=== PATIENT | male | born 1950 | race Caucasian/White ===

== ENCOUNTER 2022-05-23 07:05 | Outpatient (CLI) | payer MEDICARE, OTHER, SELFPAY ==
--- NOTE | 2022-05-23 08:31 | W.ANESCHARGE ---
Anesthesia Charges Start Date/Time Anesthesia Start Date: 05/23/22 Anesthesia Start Time: 08:01 Stop Date/Time Anesthesia Stop Date: 05/23/22 Anesthesia Stop Time: 08:28 Summary Emergency: No Extremes of Age: Over 70-CPT 19316
--- NOTE | 2022-05-23 08:52 | W.ANESCHARGE ---
Anesthesia Charges Start Date/Time Anesthesia Start Date: 05/23/22 Anesthesia Start Time: 08:01 Stop Date/Time Anesthesia Stop Date: 05/23/22 Anesthesia Stop Time: 08:28 Summary Emergency: No Extremes of Age: Over 70-CPT 92273
== END 2022-05-23 07:06 | disposition home or self-care (01) ==
LOC: OP CLINIC 07:07
PROVIDERS: PCP Family Medicine; Visit Provider Internal Medicine Gastroenterology
DX: Z12.11 Encounter for screening for malignant neoplasm of colon (principal); K63.5 Polyp of colon; Z86.010 Personal history of colon polyps
CPT/HCPCS: 00811; 00812; 45380; 88305; 99100; J2704

== ENCOUNTER 2022-06-23 06:11 | Day surgery (SDC) | payer MEDICARE, OTHER, SELFPAY ==
[2022-06-23] VITALS (10 sets, daily range): BP systolic 94–151; BP diastolic 53–82; PULSE 47–66; RESP 12–18; TEMP 36.1–36.7; O2SAT 94–100; BMI 25.7
[2022-06-23] MEDS: fentaNYL 100 MCG/2 ML inj IVP (06:29)
[2022-06-23] MEDS: MIDAZOLAM HCL 1 MG/ML inj IVP (06:29)
[2022-06-23] MEDS: ACETAMINOPHEN 500 MG TABLET 1000 MG PO (06:29)
[2022-06-23] MEDS: CELECOXIB 200 MG CAPSULE PO (06:29)
[2022-06-23] MEDS: OXYCODONE (CR) 10 MG TAB.ER.12H PO (06:29)
[2022-06-23] MEDS: LACTATED RINGERS 1000 ML 1,000 ML 100 ML IV (06:30)
[2022-06-23] MEDS: SODIUM CHLORIDE 0.9 % (FLUSH) 10 ML SYRINGE IVF (07:00)
--- NOTE | 2022-06-23 07:04 | CRLHL7_ITS ---
For Patients: As a result of the Cures Act, medical imaging exams and procedure reports are released immediately into your electronic medical record. You may view this report before your referring provider. If you have questions, please contact your health care provider. Indication: RIGHT THUMB CMC ARTHROPLASTY Technique: Two fluoroscopic images of the right wrist. Fluoroscopic time 6.7 seconds. IMPRESSION: Fluoroscopic guidance for resection of the trapezium. Dictated by Paco Casey MD @ 06/23/2022 9:32:50 AM (Electronically Signed)
--- NOTE | 2022-06-23 07:17 | SUR.PREOP ---
TIME?OUT:?0715 PT/RN/MDA?VERIFICATION?OF?SURGICAL?SITE,?PROCEDURE,?AND?CONSENT OBTAINED?PRIOR?TO?INVASIVE?PROCEDURE. RIGHT THUMB
--- NOTE | 2022-06-23 07:27 | P.NB_ITS ---
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 Images saved: Yes Medications given in 5ml increments after negative aspiration: Ropivicaine %: 0.5 mL: 30 Needle gauge: 22 Patient tolerated procedure well: Yes Additional comments: Needle noted adjacent to nerve Block Charges Block Charge (with Pro Fee): Brachial Plexus Use of Ultrasound Machine for Block: Yes- US Guidance/pain block
--- NOTE | 2022-06-23 09:33 | PM.ORPRC ---
Procedure Note Date of procedure: 06/23/22 Procedure: SURGEON: Armin Mujica MD APPLICATIONS SUPPORT ANALYST: Meghan Hernandez PA-C PREOPERATIVE DIAGNOSIS: Right thumb CMC joint osteoarthritis, STT joint osteoarthritis POSTOPERATIVE DIAGNOSIS: Right thumb CMC joint osteoarthritis, STT joint osteoarthritis NAME OF OPERATION: Right thumb CMC arthroplasty (LRTI), proximal trapezoid resection ANESTHESIA: Axillary block plus monitored anesthesia care ESTIMATED BLOOD LOSS: 0 mL COMPLICATIONS: None SPECIMENS: None DRAINS: None PREOPERATIVE ANTIBIOTICS: Ancef 2 grams INDICATIONS: The patient is a 72-year-old male with a history of right thumb CMC and STT joint osteoarthritis. Despite appropriate nonoperative management, including activity modification, antiinflammatories, [id number] pain medication, bracing, occupational therapy, and injections they continue to have pain and disability. Operative intervention was offered. The risks, benefits and expected outcomes were discussed in detail. These included but were not limited to: Infection, bleeding, injury to blood vessel or nerve, venous thromboembolism. All questions were answered to their satisfaction. Use of an paraprofessional education assistant was necessary for patient positioning, soft tissue retraction, wound closure and dressing and splint application. PROCEDURE: An axillary block was placed by anesthesia. The patient was placed supine on the operating room table. IV sedation was administered. The right upper extremity was prepped and draped in the usual sterile fashion. The limb was exsanguinated with the Zeferino bandage. The pneumatic tourniquet was inflated to 250 mmHg. A longitudinal incision was made just dorsal to the 1st dorsal compartment at the base of the thumb. Subcutaneous dissection was taken with tenotomy scissors. Several small crossing veins were cauterized and divided. The base of the thumb metacarpal was exposed. The CMC joint capsule was incised longitudinally. Subperiosteal dissection of the trapezium was carried both dorsally and volarly. Likewise, the base of the thumb metacarpal was subperiosteally exposed. The radial sensory nerve was encountered and was carefully protected throughout the case. The trapezium was dissected free with the 15 blade and the Hawkins elevator. It was removed intact. The base of the trapezoid was identified. This was confirmed with the image intensifier. We used a [place] osteotome and resected the proximal 2 mm of the trapezoid. The resection was confirmed with the image intensifier. Attention was then turned to the FCR graft harvest. A transverse incision was made at the musculotendinous junction of the FCR in the volar forearm. Subcutaneous dissection was taken with tenotomy scissors to the tendon. The tendon was freed up from the muscle fibers and was divided transversely. We then pulled the tendon graft into the distal incision at the base of the thumb. We placed a 2-0 FiberWire suture in the deep capsule. A 2.8 mm socket was drilled on the radial side of the base of the index finger metacarpal. A loop of labral tape was placed in the socket and secured with a 3 mm x 8 mm BioComposite anchor. A guide pin was drilled through the dorsum of the base of the thumb metacarpal exiting at the volar peak of the base of thumb metacarpal. A 5 mm tunnel was drilled. The tendon passer was placed through the tunnel. We pulled the tendon graft and both limbs of the labral tape into the tunnel. We maximally tensioned the graft and then placed a 4.75 x 15 mm Arthrex BioComposite tenodesis screw just distal to the graft. The graft was then pulled proximally and was secured to the dorsal bone of the base of the metacarpal with 2-0 FiberWire suture x2. We then used our previously placed 2-0 FiberWire suture in the deep capsule and folded the graft back and forth over these sutures. The graft was placed in the depth of the wound and this FiberWire suture was tied over the top to secure it in position. The wound was irrigated with normal saline. The capsule was closed with a 3-0 Vicryl in an interrupted [id number] fashion. Wounds were closed with the 3-0 Vicryl and a 4-0 Monocryl. Glue was used to seal the skin. A dry dressing and short-arm thumb spica splint were applied, the tourniquet was released. Sponge and needle counts were correct x 2. The patient tolerated the procedure well. There were no apparent complications. They were carefully transferred to the hospital bed and taken to the postanesthesia care unit in satisfactory condition. PLAN: The patient will be discharged to home. They will work on ice and elevation of the hand. They will follow up in the office next week for wound check and three views of the thumb, out of the splint prior to being seen, in preparation for an Orthoplast splint and active range of motion.
--- NOTE | 2022-06-23 09:44 | W.ANESCHARGE ---
Anesthesia Charges Summary Emergency: No Extremes of Age: Over 70-CPT 79372
--- NOTE | 2022-06-23 10:07 | W.ANESCHARGE ---
Anesthesia Charges Start Date/Time Anesthesia Start Date: 05/23/22 Anesthesia Start Time: 07:41 Stop Date/Time Anesthesia Stop Date: 05/23/22 Anesthesia Stop Time: 09:50 Summary Emergency: No Extremes of Age: Over 70-CPT 37797
--- NOTE | 2022-06-23 11:41 | W.ANESCHARGE ---
Anesthesia Charges Start Date/Time Anesthesia Start Date: 06/23/22 Anesthesia Start Time: 07:41 Stop Date/Time Anesthesia Stop Date: 06/23/22 Anesthesia Stop Time: 09:50 Summary Emergency: No Extremes of Age: Over 70-CPT [id number]
== END 2022-06-23 11:19 | disposition home or self-care (01) ==
PROVIDERS: PCP Family Medicine; Visit Provider Orthopaedic Surgery
PROC: (CPT 25447; principal; 2022-06-23 07:30)
DX: M18.11 Unilateral primary osteoarthritis of first carpometacarpal joint, right hand (principal); M19.032 Primary osteoarthritis, left wrist
CPT/HCPCS: 25447; 20924; 01810; 01830; 64415; 73140; 76942; 82962; 99100; A4580; A9270; C1713; J2250; J2405; J2704; J2795; J3010; J7120

== ENCOUNTER 2022-09-11 20:45 | Outpatient (CLI) | payer MEDICARE, OTHER, SELFPAY | END 2022-09-11 20:46 | disposition home or self-care (01) | LOC: SLEEP 20:46 | PROVIDERS: PCP Family Medicine; Referring Provider Internal Medicine; Visit Provider Internal Medicine | DX: G47.33 Obstructive sleep apnea (adult) (pediatric) (principal) | CPT/HCPCS: 95810 ==

== ENCOUNTER 2023-06-22 10:15 | Outpatient (RCR) | payer MEDICARE, OTHER, SELFPAY ==
--- NOTE | 2023-02-08 16:01 | OT.OPOE ---
OT Outpatient Ortho Eval OT Outpatient Ortho Eval* Start: 02/08/23 15:11 Freq: Status: Active Protocol: Document 02/08/23 15:11 AMB (Rec: 02/08/23 15:27 AMB [id number]) E-signed By Arlin Mohr, OTR/L, CLT, HOME DECORATOR OT OP Ortho Eval Details Complexity Complexity Low Insurance Information Insurance Information Medicare B Outpatient History/Precautions Current Condition/Medical Diagnosis Referring Provider Dr Mujica Treatment Diagnosis S/P LUE CMC arthroplasty Date of Onset DOS: 01/31/23 Medical Conditions DM,HTN,Arthritis Other Conditions PMH: Copied from ortho note: Active Problems (Updated 02/08 @ 09:21 by Kecia Hernandez PA-C) Primary osteoarthritis, left wrist (Acute) STT M19.032 - Primary osteoarthritis, left wrist ( ICD-10) Osteoarthritis of carpometacarpal (CMC) joint of left thumb (Acute) Date of surgery 01/31/2023 M18.12 - Unilateral primary osteoarthritis of first carpometacarpal joint, left hand (ICD-10) History of arthroplasty of finger of right hand (Acute ) right thumb CMC arthroplasty with proximal trapezoid resection (06/23/2022, Dr. Mujica) Z96.691 - Finger-joint replacement of right hand (ICD -10) Pulmonary embolism (Acute) I26.99 - Other pulmonary embolism without acute cor pulmonale (ICD-10) Hyperlipidemia (Acute) E78.5 - Hyperlipidemia, unspecified (ICD-10) Hypertension (Acute) I10 - Essential (primary) hypertension (ICD-10) Gastroenteritis (Acute) K52.9 - Noninfective gastroenteritis and colitis, unspecified (ICD-10) Contusion of rib on right side (Acute) S20.211A - Contusion of right front wall of thorax, initial encounter (ICD-10) Medical History (Updated 02/08 @ 09:21 by Kecia Hernandez PA-C) Arthritis of carpometacarpal ( CMC) joint of right thumb M18.11 - Unilateral primary osteoarthritis of first carpometacarpal joint, right hand (ICD-10) Type 2 diabetes mellitus without complication, without long-term current use of insulin E11.9 - Type 2 diabetes mellitus without complications (ICD-10) Vitamin D deficiency E55.9 - Vitamin D deficiency, unspecified (ICD-10) Gout M10.9 - Gout, unspecified (ICD -10) GERD (gastroesophageal reflux disease) K21.9 - Gastro-esophageal reflux disease without esophagitis (ICD-10) Diabetes E11.9 - Type 2 diabetes mellitus without complications (ICD-10) Pulmonary embolism I26.99 - Other pulmonary embolism without acute cor pulmonale (ICD-10) Hypertension I10 - Essential (primary) hypertension (ICD-10) Hyperlipidemia E78.5 - Hyperlipidemia, unspecified (ICD-10) Surgical History (Updated @ 07:44 by Estrellita Santiago ~ [facility], [facility]) History of arthroplasty of finger of left hand (01/31/23) Z96.692 - Finger-joint replacement of left hand (ICD- 10) History of arthroplasty of finger of right hand (06/23/22 ) Z96.691 - Finger-joint replacement of right hand (ICD -10) History of appendectomy Z90.49 - Acquired absence of other specified parts of digestive tract (ICD-10) Allergies amoxicillin Allergy (Verified 02/08/23 09:00) atorvastatin [From Lipitor] Allergy (Verified 02/08/23 09: 00) muscle aches oxycodone Allergy (Verified 09:00) itching ranitidine [From Zantac] Allergy (Verified 02/08/23 09: 00) muscle aches HMG-CoA reductase inhibitor Adverse Reaction (Mild, Uncoded 02/08/23 09:00) Muscle cramps - Last Reconciled 02/08/23 by Estrellita Santiago ~ [facility], [facility] aspirin 81 mg PO QDAY cholecalciferol (vitamin D3) 2 ,000 units PO .Bedtime coenzyme Q10 100 mg PO DAILY metoprolol succinate ER ( Toprol XL) 50 mg PO DAILY omega-3 fatty acids 1,000 mg PO DAILY omeprazole 20 mg PO QDAY pravastatin 40 mg PO .Bedtime trazodone 100 mg PO QDAY triamterene-hydrochlorothiazid 37.5-25 mg 1 cap PO DAILY Medical/Functional History Medical History Reviewed Yes Prior Level of Function/Mobility Full use of LUE with arthritic pain Social History Employment Status Retired Hobbies Caring for his dogs, yard work , walking Ortho Subjective Subjective Subjective Pt states he is feeling pretty good, no longer taking the pain meds and feels his swelling and pain are less than what he had with his RUE CMC arthroplasty. Pt had his post-op dressing removed today , referred to OT for custom splinting. Pt states he is having mild pain in his hand ~ 3/10. Goniometric Comments Goniometric Comments Goniometric Comments 02/08/23 AROM of the LUE wrist flexion is 15deg, ext is 10 deg, UD is 10 deg, RD is 10 deg. Pronation and supination are both 40. Pt is able to demonstrate opposition to the tip of the 3rd digit. Palmar abd is 30, radial abd is 25, IP AROM is 0-25. Strength testing is not appropriate at this time. OT Objective Data Skin/Wounds/Edema Comments 02/08/23 Expected swelling is appreciated at the LUE thumb, palm, dorsal hand and fingers. Mild bruising. Wound is clean and dry, no s/s of infection. OT Problems Problems Problems Decreased Strength,Decreased Range of Motion,Decreased Dexterity,Pain,Lifting, Gripping,Pinching Other Problems Opening Containers,Dressing, Computer,Sleeping Patient Potential Good Assessment Assessment Assessment Pt presents to OT 1 week and 1 day s/p LUE CMC arthroplasty, ready for custom splinting for protected healing and early AROM program. Pt is doing well but is limited in ADLs and IADLs that require gripping, pinching and lifting with the LUE secondary to protective restrictions following his surgery. Pt will benefit from skilled OT intervention to address limitations and to provide custom splinting for protected healing in order to return to PLOF with full, pain-free use of his LUE. Occupational Therapy Treatment Plan - OP Potential Rehabilitation Potential Good Set Goals Goals Set with Patient Yes Goals Goals 1. Pt will be independent and compliant with HEP and use of custom splint in order to resume full, pain-free use of the involved UE. 3 weeks 2. Pt will demonstrate full, pain-free AROM of the involved UE in order to improve ability to grasp and hold. 6 weeks 3. Pt will demonstrate pain- free landscape architect and planner and pinch strength comparable to the uninvolved side in order to improve functional grasp, hold, reach, and lifting ability needed to complete self-care, leisure tasks, and work activities. 8 weeks. Treatment Plan Treatment Plan Evaluation,Edema Control,Joint Mobilization,Manual Therapy, Splinting,Ultrasound,Wound Care/Scar Management, Therapeutic Exercise, Therapeutic Activities,Self Care/Home Management,Education Expected Frequency 1-2x Week Home Program Home Program Home Program Initiated Home Program Specifics 02/08/23 AROM and non resisted mm pumps for LUE fingers, hand , thumb, wrist and forearm. Certification Certification I Certify That: Therapy Services Provided, Therapy Plan Established, Therapy Plan Reviewed Recertification Information Recertification Information Initial Certification Date 02/08/23 Recertification Due Date 05/09/23 Reasons to Continue Skilled Therapy Initiated OT today to address impairments in the LUE hand/ wrist/forearm following CMC arthroplasty and custom splinting. Rehabilitation Potential Good Continued Plan of Care and Interventions Please see above. Provider Signature Shows Agreement With POC & Medical Necessity Physician Comment/Change Comment or Changes Physician NPI Number #
--- NOTE | 2023-05-25 11:47 | OT.OPODN ---
OT Outpatient Ortho Daily Note OT Outpatient Ortho Daily Note* Start: 02/08/23 15:11 Freq: Status: Active Protocol: Document 05/25/23 09:18 AMB (Rec: 05/25/23 10:13 AMB [id number]) E-signed By Arlin Mohr, OTR/L, CLT, [employer] Type of Note Type of Note Type of Note Daily Note,Recert/Progress Note Visit Number [id number] Insurance Information Insurance Information Medicare B Outpatient History/Precautions Current Condition/Medical Diagnosis Referring Provider Dr Mujica Treatment Diagnosis S/P LUE CMC arthroplasty Date of Onset DOS: 01/31/23 Medical Conditions DM,HTN,Arthritis Other Conditions PMH: Copied from ortho note: Active Problems (Updated 02/08 @ 09:21 by Kecia Hernandez PA-C) Primary osteoarthritis, left wrist (Acute) STT M19.032 - Primary osteoarthritis, left wrist ( ICD-10) Osteoarthritis of carpometacarpal (CMC) joint of left thumb (Acute) Date of surgery 01/31/2023 M18.12 - Unilateral primary osteoarthritis of first carpometacarpal joint, left hand (ICD-10) History of arthroplasty of finger of right hand (Acute ) right thumb CMC arthroplasty with proximal trapezoid resection (06/23/2022, Dr. Mujica) Z96.691 - Finger-joint replacement of right hand (ICD -10) Pulmonary embolism (Acute) I26.99 - Other pulmonary embolism without acute cor pulmonale (ICD-10) Hyperlipidemia (Acute) E78.5 - Hyperlipidemia, unspecified (ICD-10) Hypertension (Acute) I10 - Essential (primary) hypertension (ICD-10) Gastroenteritis (Acute) K52.9 - Noninfective gastroenteritis and colitis, unspecified (ICD-10) Contusion of rib on right side (Acute) S20.211A - Contusion of right front wall of thorax, initial encounter (ICD-10) Medical History (Updated 02/08 @ 09:21 by Kecia Hernandez PA-C) Arthritis of carpometacarpal ( CMC) joint of right thumb M18.11 - Unilateral primary osteoarthritis of first carpometacarpal joint, right hand (ICD-10) Type 2 diabetes mellitus without complication, without long-term current use of insulin E11.9 - Type 2 diabetes mellitus without complications (ICD-10) Vitamin D deficiency E55.9 - Vitamin D deficiency, unspecified (ICD-10) Gout M10.9 - Gout, unspecified (ICD -10) GERD (gastroesophageal reflux disease) K21.9 - Gastro-esophageal reflux disease without esophagitis (ICD-10) Diabetes E11.9 - Type 2 diabetes mellitus without complications (ICD-10) Pulmonary embolism I26.99 - Other pulmonary embolism without acute cor pulmonale (ICD-10) Hypertension I10 - Essential (primary) hypertension (ICD-10) Hyperlipidemia E78.5 - Hyperlipidemia, unspecified (ICD-10) Surgical History (Updated @ 07:44 by Estrellita Santiago ~ [facility]) History of arthroplasty of finger of left hand (01/31/23) Z96.692 - Finger-joint replacement of left hand (ICD- 10) History of arthroplasty of finger of right hand (06/23/22 ) Z96.691 - Finger-joint replacement of right hand (ICD -10) History of appendectomy Z90.49 - Acquired absence of other specified parts of digestive tract (ICD-10) Allergies amoxicillin Allergy (Verified 02/08/23 09:00) atorvastatin [From Lipitor] Allergy (Verified 02/08/23 09: 00) muscle aches oxycodone Allergy (Verified 09:00) itching ranitidine [From Zantac] Allergy (Verified 02/08/23 09: 00) muscle aches HMG-CoA reductase inhibitor Adverse Reaction (Mild, Uncoded 02/08/23 09:00) Muscle cramps - Last Reconciled 02/08/23 by Estrellita Santiago ~ [facility] aspirin 81 mg PO QDAY cholecalciferol (vitamin D3) 2 ,000 units PO .Bedtime coenzyme Q10 100 mg PO DAILY metoprolol succinate ER ( Toprol XL) 50 mg PO DAILY omega-3 fatty acids 1,000 mg PO DAILY omeprazole 20 mg PO QDAY pravastatin 40 mg PO .Bedtime trazodone 100 mg PO QDAY triamterene-hydrochlorothiazid 37.5-25 mg 1 cap PO DAILY Medical/Functional History Medical History Reviewed Yes Prior Level of Function/Mobility Full use of LUE with arthritic pain Social History Employment Status Retired Hobbies Caring for his dogs, yard work , walking Ortho Subjective Subjective Subjective Pt having increased soreness and has actually had to stop working with his weights for wrist strengthening as it seemed to make it worse. Pt is also having some tingling in his thumb, no tingling in his fingers, just the thumb. Pt feels he maybe lifted too much when helping his lift and unpack groceries. Discussed that progress is not always linear and that his diabetes could be a factor in his slow progress. Pt states that pain and weakness limits hi ability to complete higher level ADLs and IADLs such as lifting and carrying groceries , completing yard work and concerns surrounding upcoming winter months with shoveling / moving snow. OT OP Daily Ortho Note/Assessment Therapeutic Exercise Therapeutic Exercise Minutes (minutes) 3 Therapeutic Exercise Comments Reviewed exs, recommended pt slowly work back into his wrist strengthening but to star with only 1# and to progress slowly, using pain as his guide. Manual Therapy Manual Therapy Minutes (minutes) 15 Manual Therapy Comments Provided MT with focus on retrograde massage, AAROM / stretch of the LUE fingers, thumb and wrist and scar tissue mobilization. Still working on desensitization, and stretch to CMC scar, forearm scar is much better. Continue to encourage work on flattening hand posture as well. Ultrasound Ultrasound Minutes (minutes) 10 Ultrasound Location & Joint Position LUE proximal forearm surgical scar for circulatory benefit and scar tissue management. Ultrasound Frequency & Mode 1 MHz Pulsed Intensity (w/cm2) 1.5 Ultrasound Comments Pt demonstrates thick, sensitive scarring beneath incision for tendon harvest. Total Occupational Therapy Time Occupational Therapy Minutes 28 Home Program Home Program Home Program Compliant Home Program Specifics 05/04/23 Reduced resisted wrist exercises from 3# to 1# 04/20/23 Added tennis ball roof fixer , tennis ball IF abd/add, tennis ball resisted IF abd with rubber band, and resisted thumb MP ext with rubber band . Provided training and practice and issued written inst for home as well. 03/24/23 Light roof fixer and pinch strengthening with yellow TP 02/08/23 AROM and non resisted mm pumps for LUE fingers, hand , thumb, wrist and forearm. Range of Motion and Strength Hand/Finger/Thumb Range of Motion and Strength Hand/Finger/Thumb Range of Motion and Pt is able to make a full Strength composite fist, opposition to PIP of 5th (unable to reach base of 5th) radial abd to 60 , palmar abd to 60, IP flexion to 55. Hand Pinch/Livestock Rancher Strength Hand Right Livestock Rancher Strength Position 1 (lbs) 64 Lateral Pinch Strength (lbs) 15 Three Point Pinch (lbs) 15 Left Livestock Rancher Strength Position 1 (lbs) 49 Lateral Pinch Strength (lbs) 13 Three Point Pinch (lbs) 13 OT Problems Problems Problems Decreased Strength,Decreased Range of Motion,Decreased Dexterity,Pain,Lifting, Gripping,Pinching Other Problems Opening Containers,Dressing, Computer,Sleeping Patient Potential Good Assessment Assessment Assessment Pt struggling with progress due to pain and weakness. Assured pt that he is still progressing but needs to accommodate his pain, not pushing into pain, but working without pain. Pt continues to be frustrated with his inability to lift heavier things and is concerned about being able to use his hand in the winter months to move snow . Pt feels he is still benefitting from therapy, reports less pain following his session which allows him to do more of his exercises as well as daily tasks. Occupational Therapy Treatment Plan - OP Potential Rehabilitation Potential Good Set Goals Goals Set with Patient Yes Goals Goals 1. Pt will be independent and compliant with HEP and use of custom splint in order to resume full, pain-free use of the involved UE. 3 weeks 2. Pt will demonstrate full, pain-free AROM of the involved UE in order to improve ability to grasp and hold. 6 weeks 3. Pt will demonstrate pain- free roof fixer and pinch strength comparable to the uninvolved side in order to improve functional grasp, hold, reach, and lifting ability needed to complete self-care, leisure tasks, and work activities. 8 weeks. Treatment Plan Treatment Plan Evaluation,Edema Control,Joint Mobilization,Manual Therapy, Splinting,Ultrasound,Wound Care/Scar Management, Therapeutic Exercise, Therapeutic Activities,Self Care/Home Management,Education Expected Frequency 1-2x Week Occupational Therapy Billing Units Treatment Minutes Timed Treatment Minutes 28 Total Treatment Minutes 28 Billing Units Manual Therapy 1 Ultrasound 1 Recertification Information Recertification Information Initial Certification Date 02/08/23 Recertification Start Date 05/09/23 Recertification Due Date 08/08/23 Reasons to Continue Skilled Therapy Pt has been seen for 13 visits following LUE CMC arthroplasty. Pt has been slowly but steadily progressing towards his goals with improved ROM and strength , however, pt has recently been struggling with increased pain and is still quite limited in functional use of his left hand due to residual weakness which limits his ability to complete higher level ADLs and IADLs such as lifting and carrying groceries , completing yard work and concerns surrounding upcoming winter months with shoveling / moving snow. Pt will benefit from continued skilled OT intervention to address pain and weakness in order to restore full, pain-free use of LUE and return to PLOF. Pt remains very motivated and compliant. Rehabilitation Potential Good Continued Plan of Care and Interventions Please see above. Provider Signature Shows Agreement With POC & Medical Necessity Physician Comment/Change Comment or Changes Physician NPI Number #
== END 2023-06-23 08:35 | disposition home or self-care (01) ==
PROVIDERS: PCP Family Medicine; Visit Provider Orthopaedic Surgery
DX: M19.032 Primary osteoarthritis, left wrist (principal); M18.12 Unilateral primary osteoarthritis of first carpometacarpal joint, left hand; Z98.890 Other specified postprocedural states; Z51.89 Encounter for other specified aftercare
CPT/HCPCS: 97035; 97140; 97165; L3806